=== PATIENT | male | born 1945 | race Caucasian/White ===

== ENCOUNTER 2021-01-09 08:47 | Observation (INO) ==
--- NOTE | 2021-01-09 09:11 | Emergency Department Note ---
History of Present Illness General Chief complaint: Visual Disturbance Stated complaint: DOUBLE VISION Time Seen by Provider: 01/09/21 08:57 Source: patient History of Present Illness Provider complaint: Double vision Onset (ago): hour(s) Location: eyes Pain Consistency: + intermittent Quality: + other (Images are on top of 1 another) Relieved By: + other (Closing either eye) Associated symptoms: no chest pain, no cough, no fever/chills, no headaches, no nausea/vomiting, no shortness of breath and no weakness This is a 75-year-old male who presents with double vision. He states that he had an immediately on waking up this morning at 8 AM. He did not have any symptoms last night. He states the images look like they are on top of 1 another. He states it goes away if he closes either eye. He denies any loss of vision. He denies any dizziness or vertigo, difficulty with his speech, mentation, swallowing or gait. He denies any numbness or weakness on one side of his body. He has had no fever or recent illness, chest pain, shortness of breath, abdominal pain, vomiting, diarrhea or urinary symptoms. He has never had a stroke before. He did take an aspirin prior to arrival. He denies any headache or head injury. He has a history of high cholesterol, hypothyroidism and melanoma. He has had both shots for his Covid vaccine. Home Medications Medication Instructions Recorded Confirmed Type aspirin 325 mg PO ONCE 01/09/21 01/09/21 History aspirin [Aspir-81] 81 mg PO QAM 01/09/21 01/09/21 History atorvastatin 10 mg PO HS 01/09/21 01/09/21 History levothyroxine [Synthroid] 88 mcg PO DAILYBB 01/09/21 01/09/21 History Allergies Allergy/AdvReac Type Severity Reaction Status Date / Time No Known Allergies Allergy Unverified 01/09/21 09:20 Past Med/Surg History Medical History High cholesterol Hypothyroidism Melanoma Social History Smoking Status: Never smoker Hx Alcohol Use: Yes Alcohol type: beer Hx Substance Use: No Preferred Language: Hungarian Communication Ability: Effective 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 and A total of 10 systems reviewed and were otherwise negative Physical Exam Vital Signs Vital Signs - 24 hr 01/09/21 08:50 01/09/21 09:30 01/09/21 09:35 Temperature 36.1 C L Temperature Source Temporal Artery Scan Pulse Rate 72 77 74 Pulse Rate [Apical] Pulse Rhythm [Apical] Respiratory Rate 18 24 20 Respiratory Effort / Characteristics Respiratory Depth Normal Blood Pressure 180/95 H 184/98 H Blood Pressure [Right Arm] Blood Pressure Mean 123 126 Blood Pressure Mean [Right Arm] Pulse Oximetry 99 Oxygen Delivery Method Room Air Sepsis Recent Fever Within 48 Hours No Sepsis New/Unexplained Change in Mental Status No Sepsis Action Taken by Nursing No Action Required 01/09/21 09:48 01/09/21 10:00 01/09/21 10:30 Temperature Temperature Source Pulse Rate 66 64 67 Pulse Rate [Apical] Pulse Rhythm [Apical] Respiratory Rate 16 13 12 Respiratory Effort / Characteristics Respiratory Depth Blood Pressure 177/101 H 188/108 H Blood Pressure [Right Arm] Blood Pressure Mean 126 134 Blood Pressure Mean [Right Arm] Pulse Oximetry Oxygen Delivery Method Sepsis Recent Fever Within 48 Hours Sepsis New/Unexplained Change in Mental Status Sepsis Action Taken by Nursing 01/09/21 10:34 01/09/21 11:00 01/09/21 11:01 Temperature Temperature Source Pulse Rate 64 64 64 Pulse Rate [Apical] 66 Pulse Rhythm [Apical] Regular Respiratory Rate 17 17 16 Respiratory Effort / Characteristics Non-Labored Spontaneous Respiratory Depth Normal Blood Pressure 193/112 H 196/94 H Blood Pressure [Right Arm] 193/112 H Blood Pressure Mean 139 128 Blood Pressure Mean [Right Arm] 139 Pulse Oximetry 98 Oxygen Delivery Method Room Air Sepsis Recent Fever Within 48 Hours Sepsis New/Unexplained Change in Mental Status Sepsis Action Taken by Nursing 01/09/21 11:30 Temperature Temperature Source Pulse Rate 64 Pulse Rate [Apical] Pulse Rhythm [Apical] Respiratory Rate Respiratory Effort / Characteristics Respiratory Depth Blood Pressure Blood Pressure [Right Arm] Blood Pressure Mean Blood Pressure Mean [Right Arm] Pulse Oximetry Oxygen Delivery Method Sepsis Recent Fever Within 48 Hours Sepsis New/Unexplained Change in Mental Status Sepsis Action Taken by Nursing Constitutional: Vital signs reviewed. Eyes: Pupils are equal round reactive to light. Conjunctiva are noninjected. ENT: Pharynx is clear without erythema or exudate. Mucous membranes are moist. Neck supple without meningeal signs. Respiratory: Clear to auscultation bilaterally. Breath sounds are equal bilaterally. Cardiovascular: Regular rate and rhythm. No rubs or gallops. GI: Soft, nondistended and nontender. Bowel sounds are present. Musculoskeletal: No peripheral edema. No lower extremity tenderness. Integumentary: No cyanosis. or jaundice. Neurologic: The patient is awake and alert. Cranial nerves II-XII are intact. Motor is 5 out of 5 all extremities. Sensation is intact to light touch all extremities. Normal speech. No pronator drift. No limb ataxia. Visual gomez intact by confrontation. Psychiatric: Normal affect. Not anxious appearing. Course Administered Medications Discontinued Medications Clopidogrel Bisulfate (Clopidogrel Bisulfate 300 Mg Tab) 300 mg PO NOW STA Stop: 01/09/21 10:15 Last Admin: 01/09/21 10:33 Dose: 300 mg Documented by: [id number] Ioversol (Optiray 350 500ml) 120 ml IV ONCE ONE Stop: 01/09/21 09:23 Last Admin: 01/09/21 09:23 Dose: 120 ml Documented by: [id number] Labetalol HCl (Labetalol Hcl Iv 5 Mg/Ml 20ml) 5 mg IV NOW STA Stop: 01/09/21 09:35 Last Admin: 01/09/21 09:38 Dose: 5 mg Documented by: [id number] Cosigned by: [id number] Labetalol HCl (Labetalol Hcl Iv 5 Mg/Ml 20ml) 10 mg IV NOW STA Stop: 01/09/21 10:15 Last Admin: 01/09/21 10:33 Dose: 10 mg Documented by: [id number] Cosigned by: [id number] Critical Care Time Critical Care Time: Yes Total Critical Care Time: 35 I have personally spent approximately 35 minutes of critical care time in the direct management of this patient. This includes bedside care, interpretation of diagnostic studies, and testing, discussion with consultants, patient, and family members, and other required patient management activities. These minutes are in excess of all separately billable procedures. Medical Decision Making Differential Diagnosis TIA, CVA, intracranial mass, intracranial bleed, metastatic disease Medical Records Attestation: I reviewed the patient's medical records. I did perform a limited focused review of portions of the patient's old chart on the electronic medical record. The patient has had no recent pertinent visits to this hospital. Home Medications Current Medication List: was personally reviewed by me Laboratory Data Attestation: I reviewed the patient's lab results. Result diagrams: 01/09/21 09:11 01/09/21 09:11 Lab Results 01/09/21 01/09/21 01/09/21 Range/Units 09:11 09:11 09:11 WBC 6.57 (4.8-10.8) K/uL RBC 5.08 (4.7-6.1) M/uL Hgb 15.4 (14.0-18.0) g/dL Hct 45.2 (42-52) % MCV 89.0 (80-100) fL MCH 30.3 (25-34) pg MCHC 34.1 (32-36) g/dL RDW Std Deviation 45.2 (36.4-46.3) fL RDW Coeff of Ric 13.8 (11.5-14.5) % Plt Count 243 (130-400) K/uL MPV 10.2 (7.4-10.4) fL Immature Gran % (Auto) 0.2 % Neut % (Auto) 58.1 % Lymph % (Auto) 30.1 % Richardson % (Auto) 8.1 % Eos % (Auto) 3.0 % Baso % (Auto) 0.5 % Neut # (Auto) 3.82 (1.4-6.5) K/uL Lymph # (Auto) 1.98 (1.2-3.4) K/uL Richardson # (Auto) 0.53 (0.11-0.59) K/uL Eos # (Auto) 0.20 (0-0.5) K/uL Baso # (Auto) 0.03 (0-0.2) K/uL Immature Gran # (Auto) 0.01 (0.00-0.02) K/uL PT 9.8 (9.0-12.0) Seconds INR 1.0 (0.9-1.1) APTT 26.2 (21.0-31.0) Seconds PTT Ratio 1.0 Sodium (136-145) mmol/L Potassium (3.5-5.1) mmol/L Chloride (98-107) mmol/L Carbon Dioxide (21-32) mmol/L Anion Gap (3-11) BUN (7-18) mg/dl Creatinine (0.6-1.4) mg/dl Est Cr Clr Drug Dosing ml/min Est GFR ( Amer) ml/min Est GFR (Non-Af Amer) ml/min BUN/Creatinine Ratio (10-20) Glucose (70-99) mg/dl Calcium (8.5-10.1) mg/dl Magnesium (1.8-2.4) mg/dl Total Bilirubin (0.2-1) mg/dl AST (15-37) U/L ALT (12-78) U/L Alkaline Phosphatase (45-117) U/L Troponin I (0-0.045) ng/ml Total Protein (6.4-8.2) gm/dl Albumin (3.4-5.0) gm/dl Globulin (2.5-4.0) gm/dl Albumin/Globulin Ratio (0.9-2) COVID-19 Eval Order SARS-CoV-2 (PCR) (Negative) Blood Type B Positive Antibody Screen NEGATIVE 01/09/21 01/09/21 01/09/21 Range/Units 09:11 10:40 10:40 WBC (4.8-10.8) K/uL RBC (4.7-6.1) M/uL Hgb (14.0-18.0) g/dL Hct (42-52) % MCV (80-100) fL MCH (25-34) pg MCHC (32-36) g/dL RDW Std Deviation (36.4-46.3) fL RDW Coeff of Ric (11.5-14.5) % Plt Count (130-400) K/uL MPV (7.4-10.4) fL Immature Gran % (Auto) % Neut % (Auto) % Lymph % (Auto) % Richardson % (Auto) % Eos % (Auto) % Baso % (Auto) % Neut # (Auto) (1.4-6.5) K/uL Lymph # (Auto) (1.2-3.4) K/uL Richardson # (Auto) (0.11-0.59) K/uL Eos # (Auto) (0-0.5) K/uL Baso # (Auto) (0-0.2) K/uL Immature Gran # (Auto) (0.00-0.02) K/uL PT (9.0-12.0) Seconds INR (0.9-1.1) APTT (21.0-31.0) Seconds PTT Ratio Sodium 140 (136-145) mmol/L Potassium 4.2 (3.5-5.1) mmol/L Chloride 109 H (98-107) mmol/L Carbon Dioxide 27 (21-32) mmol/L Anion Gap 5.0 (3-11) BUN 18 (7-18) mg/dl Creatinine 0.94 (0.6-1.4) mg/dl Est Cr Clr Drug Dosing 70.1 ml/min Est GFR ( Amer) 91.6 ml/min Est GFR (Non-Af Amer) 79.0 ml/min BUN/Creatinine Ratio 19.2 (10-20) Glucose 114 H (70-99) mg/dl Calcium 8.8 (8.5-10.1) mg/dl Magnesium 2.3 (1.8-2.4) mg/dl Total Bilirubin 0.4 (0.2-1) mg/dl AST 20 (15-37) U/L ALT 25 (12-78) U/L Alkaline Phosphatase 100 (45-117) U/L Troponin I < 0.015 (0-0.045) ng/ml Total Protein 7.7 (6.4-8.2) gm/dl Albumin 4.1 (3.4-5.0) gm/dl Globulin 3.6 (2.5-4.0) gm/dl Albumin/Globulin Ratio 1.1 (0.9-2) COVID-19 Eval Order Covid19 at [facility] SARS-CoV-2 (PCR) NEGATIVE (Negative) Blood Type Antibody Screen Imaging Data Radiologist's Impression: Head CT 01/09/21 09:06 CT head/brain wo con CLINICAL HISTORY: diplopia POSSIBLE ACUTE STROKE COMPARISON STUDY: No previous studies for comparison. TECHNIQUE: Axial CT of the brain is performed from the vertex to the skull base. IV contrast was not administered for this examination. A dose lowering technique was utilized adhering to the principles of ALARA. CT DOSE: FINDINGS: No intra or extra-axial mass lesions are visualized. There is no CT evidence of acute cortical infarction. There is no evidence of midline shift. There is no acute hemorrhage. No calvarial fractures are visualized. There are minor white matter hypodensities likely on a small vessel basis. There is no evidence of pathologic ventricular dilatation. There is no evidence of acute sinusitis IMPRESSION: No acute intracranial findings ACT 112: Negative or not required by law. Electronically signed by: Deon Minaya M.D. 01/09/2021 9:20 AM Head CTA 01/09/21 09:06 CT angio head w con CLINICAL HISTORY: Stroke Like Symptoms DOUBLE VISION TECHNIQUE: CT angiography of the head was performed in a dynamic helical fashion during intravenous administration of 120 cc of Optiray. MIP imaging was performed. A dose lowering technique was utilized adhering to the principles of ALARA. CT DOSE: COMPARISON STUDY: No previous studies for comparison. FINDINGS: There are no lesion suspicious for aneurysm. There are no major intracranial branch occlusions. The dural venous sinuses appear patent. IMPRESSION: Normal study. ACT 112: Negative or not required by law. Electronically signed by: Deon Minaya M.D. 01/09/2021 9:25 AM Neck CTA 01/09/21 09:06 CT angio neck with con CLINICAL HISTORY: Stroke Like Symptoms DOUBLE VISION COMPARISON STUDY: No previous studies for comparison. TECHNIQUE: CT angiography was performed from the aortic arch to the skull base. MIP imaging was performed. The patient was scanned in a dynamic helical fashion during intravenous administration of 120 cc of Optiray. A dose lowering technique was utilized adhering to the principles of ALARA. CT DOSE: 1104.35 mGy.cm Technique: CT angiogram of the carotid and vertebral arteries was obtained using intravenous contrast and 3-D reconstruction. NASCET criteria was utilized. Findings: The right carotid revealed no evidence of aneurysm and no evidence of dissection. There is no evidence of hemodynamic significant stenosis. The left carotid revealed no evidence of hemodynamic significant stenosis. There is no evidence of aneurysm. There is no evidence of dissection. There is a 50% diameter stenosis of the right vertebral artery origin. There is no evidence of vertebral artery dissection IMPRESSION: 1. No evidence of hemodynamically significant carotid stenosis 2. 50% diameter stenosis of the right vertebral artery origin. ACT 112: Negative or not required by law. Electronically signed by: Deon Minaya M.D. 01/09/2021 9:28 AM ECG Data Attestation: I personally reviewed and interpreted this ECG as follows: Indication: + other (Strokelike symptoms) Rate (beats per minute): 74 Rhythm: + normal sinus ECG [place]: + Normal ECG ST segments: no ST elevation ECG Findings: no PVCs MDM Narrative I did evaluate the patient as noted above. He is presenting with the onset of binocular diplopia starting at 8 AM this morning upon wakening. He had no symptoms last night when he went to bed. He is not a candidate for IV TPA due to timing but I did call a stroke alert. IV access was established. I did place an order for continuous cardiac monitoring. The monitor showed normal sinus rhythm at a rate of 68 bpm. I did order and personally review the patient's 12-lead EKG as described above. He has no acute ischemic changes. His blood pressure was severely elevated and so he was given hydralazine IV. His blood pressure remained elevated and so I did give him another dose of hydralazine IV. I did order and review the patient's blood work as noted in the electronic medical record. CBC is unremarkable. Electrolytes are also unrem arkable except for a chloride of 109. I did order a stat CT of the head as well as CTA of the head and neck. I did review the images myself as well as the radiology report as described above. There is no evidence of acute intracranial abnormality. No stroke. There is 50% stenosis at the base of the right vertebral artery on CT angiogram of the neck. I did discuss case with Dr. Hernandez of neurology at [facility]. She recommended loading the patient on Plavix and admitting to the hospital for further evaluation as well as MRI of the brain. The patient continues to have intermittent symptoms in the ED. I did discuss the test results with him. Repeat blood pressure was 146/82. I did discuss case with the hospitalist and case planner. Impression & Plan Binocular vision disorder with diplopia, Hypertensive crisis Discharge Plan Visit Data Chief Complaint: Visual Disturbance Stated Complaint: DOUBLE VISION ED Provider: Black Macias Discharge Problem: Binocular vision disorder with diplopia, Hypertensive crisis Patient Disposition: Admitted As Inpatient Discharge Instructions Interventions: ED Discharge Assessment Last Done: 01/09/21 13:19
[2021-01-09] MEDS ORDERED: OPTIRAY 350 500ml IV ONE (09:22)
--- NOTE | 2021-01-09 09:22 | CT Scan Report ---
CT head/brain wo con CLINICAL HISTORY: diplopia POSSIBLE ACUTE STROKE COMPARISON STUDY: No previous studies for comparison. TECHNIQUE: Axial CT of the brain is performed from the vertex to the skull base. IV contrast was not administered for this examination. A dose lowering technique was utilized adhering to the principles of ALARA. CT DOSE: FINDINGS: No intra or extra-axial mass lesions are visualized. There is no CT evidence of acute cortical infarc tion. There is no evidence of midline shift. There is no acute hemorrhage. No calvarial fractures ar e visualized. There are minor white matter hypodensities likely on a small vessel basis. There is no evidence of pathologic ventricular dilatation. There is no evidence of acute sinusitis IMPRESSION: No acute intracranial findings ACT 112: Negative or not required by law. Electronically signed by: Deon Minaya M.D. 01/09/2021 9:20 AM
[2021-01-09 09:23] LABS: Basophils # (auto) 0.03 K/uL (0-0.2); Basophils % (auto) 0.5 %; Hematocrit (blood only) 45.2 % (42-52); Hemoglobin 15.4 g/dL (14.0-18.0); Immature Granulocytes # (auto) 0.01 K/uL (0.00-0.02); Immature Granulocytes % (auto) 0.2 %; Lymphocytes # (auto) 1.98 K/uL (1.2-3.4); Lymphocytes % (auto) 30.1 %; Mean Corpuscular Hemoglobin 30.3 pg (25-34); Mean Corpuscular Hgb Conc 34.1 g/dL (32-36); Mean Platelet Volume 10.2 fL (7.4-10.4); Monocytes # (auto) 0.53 K/uL (0.11-0.59); Monocytes % (auto) 8.1 %; Neutrophils # (auto) 3.82 K/uL (1.4-6.5); Neutrophils % (auto) 58.1 %; Platelet Count 243 K/uL (130-400); RDW Coefficient of Variation 13.8 % (11.5-14.5); RDW Standard Deviation 45.2 fL (36.4-46.3); Red Blood Count 5.08 M/uL (4.7-6.1); White Blood Count 6.57 K/uL (4.8-10.8)
--- NOTE | 2021-01-09 09:26 | CT Scan Report ---
CT angio head w con CLINICAL HISTORY: Stroke Like Symptoms DOUBLE VISION TECHNIQUE: CT angiography of the head was performed in a dynamic helical fashion during intravenous a dministration of 120 cc of Optiray. MIP imaging was performed. A dose lowering technique was utilized adhering to the principles of ALARA. CT DOSE: COMPARISON STUDY: No previous studies for comparison. FINDINGS: There are no lesion suspicious for aneurysm. There are no major intracranial branch occlusi ons. The dural venous sinuses appear patent. IMPRESSION: Normal study. ACT 112: Negative or not required by law. Electronically signed by: Deno Minaya M.D. 01/09/2021 9:25 AM
--- NOTE | 2021-01-09 09:29 | CT Scan Report ---
CT angio neck with con CLINICAL HISTORY: Stroke Like Symptoms DOUBLE VISION COMPARISON STUDY: No previous studies for comparison. TECHNIQUE: CT angiography was performed from the aortic arch to the skull base. MIP imaging was perfo rmed. The patient was scanned in a dynamic helical fashion during intravenous administration of 120 c c of Optiray. A dose lowering technique was utilized adhering to the principles of ALARA. CT DOSE: 1104.35 mGy.cm Technique: CT angiogram of the carotid and vertebral arteries was obtained using intravenous contrast and 3-D reconstruction. NASCET criteria was utilized. Findings: The right carotid revealed no evidence of aneurysm and no evidence of dissection. There is no evidenc e of hemodynamic significant stenosis. The left carotid revealed no evidence of hemodynamic significant stenosis. There is no evidence of an eurysm. There is no evidence of dissection. There is a 50% diameter stenosis of the right vertebral artery origin. There is no evidence of verteb ral artery dissection IMPRESSION: 1. No evidence of hemodynamically significant carotid stenosis 2. 50% diameter stenosis of the right vertebral artery origin. ACT 112: Negative or not required by law. Electronically signed by: Deon Minaya M.D. 01/09/2021 9:28 AM
[2021-01-09] MEDS ORDERED: LABETALOL HCL IV 5 MG/ML 20ML IV STA ×2 (09:34→10:14)
[2021-01-09 09:35] LABS: Partial Thromboplastin Time 26.2 Seconds (21.0-31.0); Prothrombin Time 9.8 Seconds (9.0-12.0)
[2021-01-09 09:45] LABS: Alanine Aminotransferase 25 U/L (12-78); Albumin Level 4.1 gm/dl (3.4-5.0); Aspartate Aminotransferase 20 U/L (15-37); BUN Creatinine Ratio 19.2 (10-20); Blood Urea Nitrogen 18 mg/dl (7-18); Calcium 8.8 mg/dl (8.5-10.1); Carbon Dioxide 27 mmol/L (21-32); Chloride 109 mmol/L (98-107); Creatinine Clr Calc Pharmacy 70.1 ml/min; Est GFR (African American) 91.6 ml/min; Glucose 114 mg/dl (70-99); Magnesium 2.3 mg/dl (1.8-2.4); Potassium 4.2 mmol/L (3.5-5.1); Sodium 140 mmol/L (136-145)
[2021-01-09 09:50] LABS: Albumin Globulin Ratio 1.1 (0.9-2); Alkaline Phosphatase 100 U/L (45-117); Bilirubin,Total 0.4 mg/dl (0.2-1); Globulin 3.6 gm/dl (2.5-4.0); Total Protein 7.7 gm/dl (6.4-8.2); Troponin I < 0.015 ng/ml (0-0.045)
[2021-01-09] MEDS ORDERED: CLOPIDOGREL BISULFATE 300 MG TAB PO STA (10:14)
--- NOTE | 2021-01-09 11:15 | History & Physical Report ---
Date of Service January 09, 2021 Assessment & Plan (1) TIA (transient ischemic attack): Recurrent diplopia, consideration to TIA/CVA Reviewed teleneurology consultation from Dr. Schulz at [facility] Placed in monitored observation under stroke protocol CT imaging reviewed, patient has a right vertebral artery stenosis Check MRI Patient is already had a loading dose of aspirin, continue 81 mg daily Plavix 300 mg as loading dose recommended by teleneurology, continue with 75 mg daily Check fasting lipid panel Check 2D echo Continue neurochecks, follow symptomatology Consult ophthalmology per neurology recommendations Consult in-house neurology for further recommendations (2) Hypertension: Blood pressure significant elevated, may correspond to symptoms Will give amlodipine 5 mg x 1 now, continue dosing in the morning (3) High cholesterol: Patient is on atorvastatin 10 mg nightly. Will increase to 40 mg nightly Check fasting lipid panel (4) Hypothyroidism: Continue levothyroxine 88 mcg daily History of Present Illness Chief Complaint: Diplopia Primary Care Provider: Cole Altamirano, DO This is 75-year-old male with past medical history of hypercholesterolemia and recently diagnosed melanoma that presents today complaining of diplopia. Patient is pleasantly good historian. Patient tells me that he was doing well until approximately 8:30 AM. He had a sudden onset of diplopia when he looked at his alarm clock. He tells me that this lasted several minutes and then seemed to resolve but has been intermittent since. He denies any other symptoms that accompany this either before or during my evaluation. Specifically denies any weakness, dysarthria, aphasia, numbness in the face or extremities. He also denies any other visual disturbances as well as any headache. He tells me he took 325 mg aspirin and then went to discussed with his neighbor. By the time he arrived at his neighbor's door, the symptoms have resolved but it was suggested that he should seek medical attention regardless. This is been recurrent several times during the course of the morning. I had actually started to recur during my conversation with the patient. He is otherwise asymptomatic. Of note, patient's blood pressure was 195/98 on recheck with the automatic cuff. Allergies Allergy/AdvReac Type Severity Reaction Status Date / Time No Known Allergies Allergy Unverified 01/09/21 09:20 Home Medications Medication Instructions Recorded Confirmed Type aspirin 325 mg PO ONCE 01/09/21 01/09/21 History aspirin [Aspir-81] 81 mg PO QAM 01/09/21 01/09/21 History atorvastatin 10 mg PO HS 01/09/21 01/09/21 History levothyroxine [Synthroid] 88 mcg PO DAILYBB 01/09/21 01/09/21 History Past Med/Surg History Medical History High cholesterol Hypothyroidism Melanoma Social History Smoking Status: Never smoker Feels Safe at Home: Yes Review of Systems Constitutional: no fever, no chills, no weakness, no weight loss and no weight gain Eyes: as per Subjective / HPI Respiratory: no cough, no chest congestion, no dyspnea and no dyspnea on exertion Cardiovascular: no chest pain, no orthopnea, no palpitations, no lightheadedness and no edema Gastrointestinal: no abdominal pain, no nausea, no vomiting, no constipation and no diarrhea/loose stools Musculoskeletal: no back pain, no neck pain, no joint pain, no stiffness and no myalgia Integumentary: no rash Neurologic: no gait abnormality, no unsteadiness, no falls, no localized weakness, no generalized weakness, no paralysis, no loss of sensation, no tingling, no numbness, no paresthesia, no tremor(s), no seizure-like activity, no dizziness, no syncope, no headache(s), no abnormal speech and no confusion diplopia Psychiatric: no behavioral changes Physical Exam Constitutional: cooperative and comfortable; no acute distress Neck: trachea midline, no thyromegaly Respiratory: normal respiratory effort Auscultation: lungs clear to auscultation bilaterally; no crackles, no rales, no rhonchi and no wheezes Cardiovascular: Rate/Rhythm: regular rate and regular rhythm Heart Sounds: normal S1 and normal S2; no murmur Gastrointestinal (Abdomen): Inspection/Auscultation: abdomen normal to inspection Percussion/Palpation: abdomen soft; abdomen nontender, no guarding, abdomen not rigid and no hepatosplenomegaly Musculoskeletal: no cyanosis or clubbing, extremities motor strength 5/5 Skin: no rashes, warm and dry Neurologic: patellar DTR's 2+ bilat, sensation intact and PERRL, EOMI, accommodation nl, no face palsy, no dysarthria CN's II-XI intact bilaterally, deep tendon reflexes 2+ bilaterally and moves all extremities; no meningeal signs and not confused Speech / Cognition: normal speech Cranial Nerves: PERRL, normal accommodation, EOM intact bilaterally, normal facial strength and tongue midline Results & Data Results & Data ([facility]) Vital Signs (Past 12 Hours) Vital Signs Temp Pulse Pulse Resp BP BP Pulse Ox 01/09/21 10:34 66 18 193/112 H 98 01/09/21 08:50 36.1 C L 72 18 180/95 [address] head/brain wo con CLINICAL HISTORY: diplopia POSSIBLE ACUTE STROKE COMPARISON STUDY: No previous studies for comparison. TECHNIQUE: Axial CT of the brain is performed from the vertex to the skull base. IV contrast was not administered for this examination. A dose lowering technique was utilized adhering to the principles of ALARA. CT DOSE: FINDINGS: No intra or extra-axial mass lesions are visualized. There is no CT evidence of acute cortical infarction. There is no evidence of midline shift. There is no acute hemorrhage. No calvarial fractures are visualized. There are minor white matter hypodensities likely on a small vessel basis. There is no evidence of pathologic ventricular dilatation. There is no evidence of acute sinusitis IMPRESSION: No acute intracranial findings ---- CT angio neck with con CLINICAL HISTORY: Stroke Like Symptoms DOUBLE VISION COMPARISON STUDY: No previous studies for comparison. TECHNIQUE: CT angiography was performed from the aortic arch to the skull base. MIP imaging was performed. The patient was scanned in a dynamic helical fashion during intravenous administration of 120 cc of Optiray. A dose lowering technique was utilized adhering to the principles of ALARA. CT DOSE: 1104.35 mGy.cm Technique: CT angiogram of the carotid and vertebral arteries was obtained using intravenous contrast and 3-D reconstruction. NASCET criteria was utilized. Findings: The right carotid revealed no evidence of aneurysm and no evidence of dissection. There is no evidence of hemodynamic significant stenosis. The left carotid revealed no evidence of hemodynamic significant stenosis. There is no evidence of aneurysm. There is no evidence of dissection. There is a 50% diameter stenosis of the right vertebral artery origin. There is no evidence of vertebral artery dissection IMPRESSION: 1. No evidence of hemodynamically significant carotid stenosis 2. 50% diameter stenosis of the right vertebral artery origin. PG Care Time/CCT Total # of Minutes Spent Total Time Spent with Patient: Total time spent is greater than 50% in coordination of care (as documented) at patient's floor/unit and/or counseling patient: Coding Level of Care Code 48184 OBS Care - Level 3 Diagnoses TIA (transient ischemic attack) G45.9 Hypertension I10 High cholesterol E78.00 Hypothyroidism E03.9
[2021-01-09] MEDS ORDERED: ACETAMINOPHEN 325 MG TAB PO PRN (13:56)
[2021-01-09] MEDS ORDERED: amLODIPine BESYLATE 5 MG TAB PO ONE (13:56)
[2021-01-09] MEDS ORDERED: ONDANSETRON INJ 2 MG/ML 2 ML VIAL IV PRN (13:56)
[2021-01-09] MEDS ORDERED: PHARMACIST DISCHARGE MED REC CONSULT PRN (13:56)
--- NOTE | 2021-01-09 14:59 | Magnetic Resonance Report ---
MRI OF THE BRAIN WITHOUT CONTRAST CLINICAL HISTORY: New onset double vision. Possible stroke COMPARISON STUDY: CT scan dated 01/09/2021 FINDINGS: Sagittal T1, axial diffusion, proton density and T2 weighted axial, coronal FLAIR, and axial T1-weigh braden images were acquired. No intra or extra-axial mass lesions are visualized Axial diffusion-weighted images reveal no evidence of acute or subacute infarction. There is no evidence of ventricular dilatation. Proton density T2-weighted and FLAIR images reveal scattered foci of increased T2 signal within the w porter matter, likely on a small vessel basis. There are no abnormal flow voids. There is mild nonspecific asymmetry in the nasopharyngeal soft tissues at the level of the left fossa of Rosenmuller. IMPRESSION: 1. No acute intracranial findings 2. No evidence of acute or subacute infarction 3. No evidence of intracranial mass on this noncontrast study. 4. Mild nonspecific asymmetry in the nasopharyngeal soft tissues at the level of the left fossa of Ro senmuller. ACT 112: Negative or not required by law. Electronically signed by: Deon Minaya M.D. 01/09/2021 2:58 PM
--- NOTE | 2021-01-09 15:08 | Electrocardiogram Report ---
Test Reason : Blood Pressure : / mmHG Vent. Rate : 074 BPM Atrial Rate : 074 BPM P-R Int : 202 ms QRS Dur : 098 ms QT Int : 390 ms P-R-T Axes : 063 032 072 degrees QTc Int : 432 ms Normal sinus rhythm Normal ECG No previous ECGs available Confirmed by Meño Peraza ([id number]) on 01/09/2021 3:07:53 PM Referred By: Confirmed By:Meño Peraza
[2021-01-09] MEDS ORDERED: ATORVASTATIN 40 MG TAB PO SCH (21:00)
[2021-01-10] MEDS ORDERED: LEVOTHYROXINE SODIUM 88 MCG TABLET PO SCH (06:30)
[2021-01-10 07:26] LABS: Basophils # (auto) 0.02 K/uL (0-0.2); Basophils % (auto) 0.3 %; Eosinophils # (auto) 0.17 K/uL (0-0.5); Eosinophils % (auto) 2.7 %; Hematocrit (blood only) 43.5 % (42-52); Hemoglobin 14.6 g/dL (14.0-18.0); Immature Granulocytes # (auto) 0.01 K/uL (0.00-0.02); Immature Granulocytes % (auto) 0.2 %; Lymphocytes # (auto) 1.58 K/uL (1.2-3.4); Mean Corpuscular Hemoglobin 29.9 pg (25-34); Mean Corpuscular Hgb Conc 33.6 g/dL (32-36); Mean Platelet Volume 10.3 fL (7.4-10.4); Monocytes # (auto) 0.58 K/uL (0.11-0.59); Monocytes % (auto) 9.2 %; Neutrophils # (auto) 3.95 K/uL (1.4-6.5); Neutrophils % (auto) 62.6 %; Platelet Count 234 K/uL (130-400); RDW Coefficient of Variation 14.1 % (11.5-14.5); RDW Standard Deviation 46.1 fL (36.4-46.3); Red Blood Count 4.89 M/uL (4.7-6.1); White Blood Count 6.31 K/uL (4.8-10.8)
[2021-01-10 07:45] LABS: BUN Creatinine Ratio 17.6 (10-20); Creatinine Clr Calc Pharmacy 73.2 ml/min; Est GFR (African American) 96.5 ml/min; Est GFR (Non-African American) 83.3 ml/min; Magnesium 2.3 mg/dl (1.8-2.4); Potassium 3.7 mmol/L (3.5-5.1)
[2021-01-10] MEDS ORDERED: ASPIRIN 81 MG ECTAB PO SCH (09:00)
[2021-01-10] MEDS ORDERED: CLOPIDOGREL BISULFATE 75 MG TAB PO SCH (09:00)
[2021-01-10] MEDS ORDERED: amLODIPine BESYLATE 5 MG TAB PO SCH (09:00)
--- NOTE | 2021-01-10 09:30 | Neurology Consultation ---
Date of Consultation January 10, 2021 Assessment & Plan (1) Binocular vision disorder with diplopia: (2) Hypertension: (3) Vertebral artery stenosis, asymptomatic: patient had the acute onset of double vision of a nonspecific nature January 09 occurring intermittently for minutes at a time finally resolving completely after 4 hours. Neurologic examination is unremarkable, with no focal findings, meningeal signs, or encephalopathy. Patient has no nystagmus or eye findings and does not have double vision currently. Patient had significant hypertension yesterday which probably resulted in the transient neurologic symptoms of double vision. MRI did not show a stroke and only very mild nonspecific small vessel ischemic changes I would not call this a TIA but, again, transient neurologic symptoms secondary to hypertension. The patient has mild nonspecific right vertebral stenosis at the origin with no other vascular stenoses are anomalies on CT angiography. Recommendations: 1. Continue 81 milligram aspirin tablet daily. I see no need to change this to clopidogrel. 2. Control hypertension as you are doing, aiming for a mean arterial pressure of 95-100. 3. Echocardiogram is pending but he does not have any cardiac history. 4. Hemoglobin A1c is pending but his glucose readings have been quite normal. 5. I have no further neurologic testing or treatment recommendations to make at this time. Overall, I spent a total of 75 minutes with this case including review of records, review of MRI films, direct evaluation the patient at bedside, and discussing the case with the patient and his daughter at bedside, and Dr. Patton including differential diagnosis and treatment options. History of Present Illness Reason for Consultation: Patient is a 75-year-old, who was asked to see at the request Dr. Booker, for neurologic consultation regarding acute onset double vision Requesting Physician: . Dr. Booker Attending Physician: Ryder Patton MD History of Present Illness this patient has a history of dyslipidemia and hypothyroidism as well as some skin surgeries for melanoma and basal cell carcinoma. He has been on atorvastatin 10 milligrams a day , Synthroid 80 milligrams daily, and 81 milligram aspirin tablet daily. Patient went to bed January 08 without any issues. He woke up around 0800 on January 09 noticing double vision. They were [id number] and occurred with both eyes open. When he covered 1 eye or the other it disappeared. He had no eye pain, blurry vision, or loss of vision. He had no droopy eyelids or weakness of his face. He had no numbness or weakness of the limbs, balance problems, nausea, headache, speech issues or confusion. It lasted about 10 minutes then resolved. He took a 325 milligram aspirin tablet. 10 minutes following the resolution of the double vision it occurred again just as it did the 1st time only the double vision was skewed with the higher image on the right. This time it lasted 5 minutes. While in the emergency room and happened a 3rd time lasting a few minutes and then a few times thereafter intermittently lasting about a minute or so finally resolving by early afternoon January 09. It has not returned since. He has no other symptoms and feels back to baseline. He arrived to the emergency room January 09 at 0850, with a temperature of 36.1, pulse 72 and regular, respiratory rate 18 and comfortable, and blood pressure 180/95 with an O2 sat of 99 percent. His blood pressure remained elevated in the emergency room with pressure as high as 193/112. His neurologic examination was unremarkable with no focal signs. There was no nystagmus. CBC and Chem profile were unremarkable. CT scan of the head showed no acute changes. CT angiography of the head and neck was quite normal except for some 50 percent stenosis at the origin of the right vertebral artery. MRI of the brain showed old ischemic changes of a mild nature only and no acute stroke. Patient had been having some intermittent posterior cervical spine pain left greater than right side but this was not worse. He has no headaches. Blood pressure this morning is 159/90 and he has been in sinus rhythm in the 80s overnight. CBC and Chem profile this morning were unremarkable. Triglycerides were 99 and total cholesterol 146. Hemoglobin A1c is pending. Allergies Allergy/AdvReac Type Severity Reaction Status Date / Time No Known Allergies Allergy Unverified 01/09/21 09:20 Home Medications Medication Instructions Recorded Confirmed Type aspirin 325 mg PO ONCE 01/09/21 01/09/21 History aspirin [Aspir-81] 81 mg PO QAM 01/09/21 01/09/21 History atorvastatin 10 mg PO HS 01/09/21 01/09/21 History levothyroxine [Synthroid] 88 mcg PO DAILYBB 01/09/21 01/09/21 History Patient History Medical History (Updated 01/10/21 @ 09:26 by Ebenezer Dorantes MD) High cholesterol Hypothyroidism Melanoma Surgical History History of melanoma excision Family History (Updated 01/10/21 @ 09:22 by Ebenezer Dorantes MD) Mother , age 95 with dementia. 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 Other Information That Helps Us Care for You: No Feels Safe at Home: Yes Safety Concerns: Feels Safe At This Time Assistive Devices: Glasses Review of Systems Constitutional: no fever, no fatigue and no weakness Eyes: no diplopia, no eye pain and no worsening vision Ear, Nose, Mouth, Throat: no ear pain, no tinnitus, no hearing loss, no dizziness, no hoarseness and no dysphagia Respiratory: no cough and no dyspnea Cardiovascular: no chest pain, no palpitations and no lightheadedness Gastrointestinal: no abdominal pain, no nausea and no vomiting Genitourinary: no dysuria and no urinary incontinence Musculoskeletal: + neck pain; no back pain, no radicular pain, no joint pain and no myalgia Integumentary: no rash and no lesions Neurologic: no gait abnormality, no localized weakness, no generalized weakness, no tingling, no numbness, no tremor(s), no abnormal movements, no headache(s), no abnormal speech, no confusion and no memory loss Psychiatric: no depression, no irritability, no anxiety, no difficulty concentrating, no confusion and no hallucinations Endocrine: no fatigue and no flushing Hematologic / Lymphatic: no easy bleeding and no easy bruising Allergy / Immunological: no urticaria and no problem reported Exam (Neuro) Physical Exam: The patient is right-handed. The patient is awake, alert, and attentive. Speech is normal without any aphasia or dysarthria. he can name objects, repeat phrases, and has normal spontaneous speech. Mentation and thought processes are intact, with orientation to person, place and time, and normal fund of knowledge. Attention and concentration are normal. Mood and affect are normal and appropriate. General appearance and grooming are normal. Short and long-term memory are intact. Pupils are 4 mm bilaterally and reactive to light. Extraocular eye muscles are intact without nystagmus. Visual acuity and visual gomez seem normal grossly to confrontation. There are no deficits to sensation in the face in all 3 distributions of the fifth cranial nerve bilaterally. Corneal reflexes are positive bilaterally. Facial strength and symmetry was normal bilaterally. Hearing seems normal to whisper and finger rub bilaterally. Palate moves well without asymmetry. There is normal sternocleidomastoid and trapezius (shoulder shrug) strength bilaterally. Tongue is midline with good strength bilaterally. Neck has a full range of motion without discomfort. There are no cervical bruits bilaterally. There are no cranial or ocular bruits. Heart is without murmur. There is a regular rhythm and rate. Cervical, thoracic, and lumbar spine are nontender to palpation. Gait is narrow based, with good arm swing, turns, and stance. With outstretched arms there is no drift. There are no resting, postural, or action tremors. There is no ataxia with finger to nose testing. There is good facility in the hands. No other abnormal involuntary movements are noted. Motor strength is 5/5 diffusely in the arms bilaterally including deltoids, biceps, triceps, brachioradialis, wrist flexors and extensors, radio frequency technician, and intrinsic hand muscles. Motor strength is 5/5 diffusely in the legs bilaterally including hip flexors, quadriceps, hamstrings, gastrocnemius, tibialis anterior, tibialis posterior, and Peroneii muscles. Toe extensors are normal and there is good bulk in the extensor digitorum brevis muscles bilaterally. The limbs have good tone without rigidity or spasticity. There is no atrophy noted in the muscles. Muscle bulk is normal, there is no tenderness to palpation, no myotonia to percussion, and no fasciculations seen. Sensory examination is intact to touch and pin throughout all 4 limbs diffusely. Reflexes are 2/4 in the biceps, triceps, brachioradialis, quadriceps, and Achilles tendons bilaterally. There is no clonus bilaterally. Toes are downgoing with plantar stimulation bilaterally. Peripheral pulses are present and of normal quality distally in all 4 limbs. There is no peripheral edema noted in the limbs. Results & Data ([facility]) Vital Signs (Past 12 Hours) Vital Signs Temp Pulse Pulse Resp BP BP Pulse Ox 01/10/21 08:00 63 01/10/21 07:39 36.5 C 69 14 159/90 H 97 01/10/21 03:28 36.5 C 67 18 126/72 96 01/09/21 23:46 165/87 H 01/09/21 23:02 36.8 C 75 18 183/83 H 96 PG Care Time/CCT Total # of Minutes Spent Total Time Spent with Patient: Total time spent is greater than 50% in coordination of care (as documented) at patient's floor/unit and/or counseling patient: Coding Level of Care Code 79475 OBS Care - Level 3 Diagnoses Binocular vision disorder with diplopia H53.2 Hypertension I10 Vertebral artery stenosis, asymptomatic I65.09 Time Spent (min) 75
[2021-01-10] MEDS ORDERED: STROKE PATIENT DISCHARGE STA (14:50)
--- NOTE | 2021-01-10 21:01 | Discharge Summary ---
Date of Service January 10, 2021 Admission HPI Per Admitting Provider This is 75-year-old male with past medical history of hypercholesterolemia and recently diagnosed melanoma that presents today complaining of diplopia. Patient is pleasantly good historian. Patient tells me that he was doing well until approximately 8:30 AM. He had a sudden onset of diplopia when he looked at his alarm clock. He tells me that this lasted several minutes and then seemed to resolve but has been intermittent since. He denies any other symptoms that accompany this either before or during my evaluation. Specifically denies any weakness, dysarthria, aphasia, numbness in the face or extremities. He also denies any other visual disturbances as well as any headache. He tells me he took 325 mg aspirin and then went to discussed with his neighbor. By the time he arrived at his neighbor's door, the symptoms have resolved but it was suggested that he should seek medical attention regardless. This is been recurrent several times during the course of the morning. I had actually started to recur during my conversation with the patient. He is otherwise asymptomatic. Of note, patient's blood pressure was 195/98 on recheck with the automatic cuff. Principal Diagnosis Transient cranial nerve palsy Discharge Exam Constitutional WD/WN, vitals as above Eyes EOM intact bilaterally; no conjunctival abnormality ENMT external ear and nose normal, oropharynx normal Neck trachea midline, no thyromegaly normal visual inspection Respiratory normal respiratory effort, lungs clear to auscultation no respiratory distress Cardiovascular RRR, no murmur, no edema Gastrointestinal (Abdomen) Inspection/Auscultation: abdomen normal to inspection; abdomen not distended Musculoskeletal no cyanosis or clubbing, extremities motor strength 5/5 Skin no rashes, warm and dry Neurologic moves all extremities and awake Psychiatric Orientation: alert, oriented to person and cooperative Discharge Data Allergies Allergy/AdvReac Type Severity Reaction Status Date / Time No Known Allergies Allergy Unverified 01/09/21 09:20 Consultations 01/09/21 10:30 ED Decision to Admit Stat 01/09/21 13:56 Consult Neurology Routine Consult Ophthalmology Routine Ordered Studies 01/09/21 09:06 CT angio head w con Stat CT angio neck with con Stat CT head/brain wo con Stat 01/09/21 13:56 MR brain wo con Routine Hospital Course (1) TIA (transient ischemic attack): Recurrent diplopia, consideration to TIA/CVA; however, Dr. Dorantes felt this was a transient cranial nerve palsy likely related to hypertension. - Continue usual home ASA 81 mg PO daily - Improve control of BP; lisinopril 10 mg HS started on discharge. Will monitor at home and adjust with PCP. - Will discuss increasing his atorvastatin from 10 mg to a slightly higher dose. (2) Hypertension: Blood pressure significant elevated, may correspond to symptoms. - Lisinopril as above (3) High cholesterol: Patient is on atorvastatin 10 mg nightly. - Fasting lipid panel was generally at goal. Will discuss increase with PCP as above. (4) Hypothyroidism: - Continue levothyroxine 88 mcg daily Total Time Total Time Spent Total Time Spent (In Minutes): 35 Discharge Plan Discharge Items Patient Disposition: Home - Self-Care Reason For Visit: DIPLOPIA Discharge Diagnosis: Diplopia (double vision) likely caused by a transient cranial nerve dysfunction (cranial nerve palsy) Activity: Resume your previous activity Non-emergency contact: Primary Care Provider and Suction Worker Call non-emergency contact if: your symptoms worsen Follow-up/Referrals: Cole Altamirano, [Primary Care Provider] - Diet: Heart Healthy Addtl Attending Provider Instructions: Mr. Santillan, You were admitted to the hospital with double vision (called diplopia) that we believe was caused by a cranial nerve palsy. The neurologist felt this was possibly due to high blood pressure. While your blood pressure is generally lower at home than here in the hospital, clinical evidence would indicate that aiming for a blood pressure closer to 120/70 will reduce your risk of stroke and heart attack in the long-term (over years). To that effect, I prescribed a medication called lisinopril which is a great medication that can also protect your heart and kidneys. The most common side effect is a cough. This occurs in only 3-4% of people, so generally we think this is still a great medication to use as an initial blood pressure medication. A large, [place] study indicates that taking your blood pressure medication at bedtime reduces heart attack and stroke risk more effectively without any additional side effect, so take your lisinopril tonight before bedtime. (https://www.health.[employer].edu/iibeqary-mia-xphveylrwa/twslwx-w-ulej-b vvom-lvdglhjg-kbqcrbndpqs-at-night) Your cholesterol levels were fairly good with a total cholesterol of 146 and an LDL of 91, but you may want to speak with your PCP about raising your atorvastatin to a slightly higher dose. We did an echocardiogram of your heart, and it looked great. Finally, since this was a vision issue, please see your regular battery vent plug inserter for an eye check this week. Pending Studies at Discharge: No Stand-Alone Forms: My [facility], Smoking Cessation Medications and DC Order Prescriptions: New lisinopril 10 mg tablet 10 mg PO HS Qty: 30 RF: 0 Continued atorvastatin 10 mg tablet 10 mg PO HS RF: 0 aspirin 81 mg Tablet,Delayed Release (Dr/Ec) 81 mg PO QAM RF: 0 levothyroxine [Synthroid] 88 mcg tablet 88 mcg PO DAILYBB RF: 0 Discontinued aspirin 325 mg Tablet 325 mg PO ONCE RF: 0 Discharge Orders: Discharge Order (Routine); Ordered 01/10/21 Ordered By: Ryder Florez/Other Patient Handouts: ED Double Vision (Diplopia) Admission Data Admit Date/Time: 01/09/21 11:49 Attending Provider: Ryder Patton Admit Provider: Carrington Booker Primary Care Provider: Cole Altamirano Other Providers: Ebenezer Dorantes ; Balwinder Díaz ; Ryder Patton Other Interventions: Discharge Summary Assessment (RN) Last Done: 01/10/21 15:02 Coding Level of Care Code 66634 OBS Care - Discharge Diagnoses TIA (transient ischemic attack) G45.9 Hypertension I10 High cholesterol E78.00 Hypothyroidism E03.9
--- NOTE | 2021-01-10 22:35 | Consultation Report ---
DATE OF CONSULTATION: 01/10/2021 REASON FOR CONSULTATION: Transient diplopia. HISTORY OF PRESENT ILLNESS: The patient is a 75-year-old white male who on the had multiple transient episodes of diplopia of his vision. He states that the vision was somewhat skewed whenever he had the double vision where the double images were slightly to the side and vertically displaced from each other. His past medical history was significant for hypothyroidism as well as cholesterol. He also had a diagnosis of melanoma recently. In the ER, he was found to have elevated blood pressure of 180/95, 193/112. Neuro imaging including a CT scan and MRI of the head as well as angiograms of the head and neck were negative for any aneurysm or vessel dissection. He had taken some aspirin at home and continued to be on aspirin in the hospital. With his blood pressure normalizing, he has not had any further episodes of double vision. His past ocular history significant for glasses, but no other significant past ocular history. On examination today, his visual acuity with his current glasses with a near card was 20/30 in each eye. His globes were soft to palpation. His extraocular movements were intact and full in all quadrants. He was orthophoric at distance in primary gaze and no strabismus was found. His optic nerves were pink and healthy on funduscopic examination. He had mild cataracts of both eyes. No other pathology was seen. In summary, he has had a transient diplopia that seems to be resolved at this point, most likely related to his increased blood pressure. I have recommended to him that he follow up again in 4-6 weeks as an outpatient for full eye examination. It is my pleasure to participate in the care of this patient. If you have any further questions, do not hesitate to contact me. Sincerely MTDIza
[2021-01-11 07:53] LABS: Estimated Average Glucose 128 mg/dl; Hemoglobin A1C 6.1 % (4.5-5.6)
== END 2021-01-10 15:30 | disposition home or self-care (01) ==
LOC: ED 08:47 → 2S 08:47 → SUATTDRO 11:49 → 2S 13:19